=== PATIENT | male | born 1990 | race Caucasian/White ===

== ENCOUNTER 2017-05-02 01:32 | Emergency (ER) | payer SELFPAY ==
[~2017-05-02] VITALS: Ht 167.6 cm; Wt 59.9 kg
[2017-05-02] MEDS ORDERED: FAMOTIDINE 20 MG/2 ML ONE (01:59)
[2017-05-02] MEDS ORDERED: ONDANSETRON 2MG/ML, 2ML ONE (01:59)
[2017-05-02] MEDS ORDERED: MAALOX/HYOSCYAMINE/LIDOCAINE 45 ML BOTTLE ONE (01:59)
[2017-05-02] MEDS ORDERED: PROMETHAZINE 25 MG/ML, 1ML ONE (01:59)
[2017-05-02] MEDS ORDERED: FAMOTIDINE 20 MG/2 ML IVP ONE (02:00)
[2017-05-02] MEDS ORDERED: ONDANSETRON 2MG/ML, 2ML IVPush ONE (02:00)
[2017-05-02] MEDS ORDERED: SODIUM CHLORIDE 0.9% 1,000ML IVBOLUS ONE (02:00)
[2017-05-02] MEDS ORDERED: MAALOX/HYOSCYAMINE/LIDOCAINE 45 ML BOTTLE PO ONE (02:00)
[2017-05-02] MEDS ORDERED: PROMETHAZINE 25 MG/ML, 1ML IM ONE (02:00)
[2017-05-02 02:29] LABS: ASPARTATE AMINO TRANSFERASE 22 U/L (15-37); BLOOD UREA NITROGEN 20 mg/dL (7-18)
[2017-05-02 04:13] VITALS: BP 104/61
== END 2017-05-02 04:16 | disposition home or self-care (01) ==
LOC: ED 03:13
DX: K52.9 Noninfective gastroenteritis and colitis, unspecified (principal)
CPT/HCPCS: 36415; 80053; 83690; 85025; 96361; 96372; 96374; 96375; 99284; J2405; J2550; J7030; S0028